=== PATIENT | female | born 1965 | race Caucasian/White ===

== ENCOUNTER 2020-11-21 15:27 | Outpatient (REF) | payer OTHER, SELFPAY ==
--- NOTE | 2020-11-21 15:33 | MM_ITS ---
EXAMINATION: MM SCREENING DIGITAL BREAST TOMOSYNTHESIS, BILATERAL CLINICAL INFORMATION: Screening. Asymptomatic. The lifetime risk of breast cancer based on the Tyrer-Cuzick Model is 10%. COMPARISON: Mammography: 06/20/2019, 06/11/2018, 05/15/2017 TECHNIQUE: Digital breast tomosynthesis is performed in both the craniocaudal and mediolateral oblique views along with computer-aided detection (CAD). Synthesized 2D images are generated from the tomosynthesis. FINDINGS: There are scattered areas of fibroglandular density (ACR BI-RADS breast composition Category b). There are no significant masses, abnormal calcifications, or other abnormalities. Parenchymal pattern is similar to prior studies. No developing density. No significant changes. MM/MM tomosynthesis screening BI IMPRESSION: There are no significant changes from prior study. ASSESSMENT: BI-RADS 1: Negative RECOMMENDATION: Routine annual mammography screening. This patient's information was entered into a reminder system with a target due date for their next mammogram.
== END 2020-11-21 15:28 | disposition home or self-care (01) ==
LOC: HO.MAMMO 15:27
PROVIDERS: PCP Internal Medicine; Visit Provider Internal Medicine
DX: Z12.31 Encounter for screening mammogram for malignant neoplasm of breast (principal)
CPT/HCPCS: 77063; 77067

== ENCOUNTER 2021-05-15 10:16 | Outpatient (REF) | payer OTHER, SELFPAY ==
[2021-05-15 10:35] LABS: MANUAL DIFF FLAG NO
[2021-05-15 10:42] LABS: Basophils Absolute Auto 0.1 X10*3/uL (0.0-0.2); Basophils Percent Auto 0.7 % (0-2); Eosinophils Absolute Auto 0.1 X10*3/uL (0.0-0.4); Eosinophils Percent Auto 1.8 % (0-4); Hematocrit 42.9 % (37-47); Imm Gran Abs Auto 0.02 X10*3/uL (0.00-0.03); Imm Gran Pct Auto 0.3 % (0.0-0.4); Lymphocytes Absolute Auto 2.1 X10*3/uL (1.2-4.9); Lymphocytes Percent Auto 31.3 % (20-40); Mean Corpuscular HGB Conc 32.6 g/dl (31.0-35.0); Mean Corpuscular Hemoglobin 29.2 pg (27.0-33.0); Mean Corpuscular Volume 89.4 fL (80-98); Mean Platelet Volume 10.1 fL (9.4-12.3); Monocytes Absolute Auto 0.7 X10*3/uL (0.1-1.2); Monocytes Percent Auto 10.6 % (2-11); Neutrophils Absolute Auto 3.8 X10*3/uL (2.0-8.3); Neutrophils Percent Auto 55.3 % (45-73); Platelet Count 461 X10*3/uL (160-400); Red Cell Distribution Width 13.2 % (11.0-16.0); White Blood Count 6.8 X10*3/uL (4.8-10.8)
[2021-05-15 10:50] LABS: Estimated Average Glucose 120 mg/dL; Hemoglobin A1c % 5.8 %
[2021-05-15 11:08] LABS: Troponin-I High Sensitivity < 3.5 ng/L (<3.5-17.0)
[2021-05-15 11:14] LABS: Anion Gap 14 (12-20); Blood Urea Nitrogen 12 mg/dL (9-16); Calcium 10.1 mg/dL (8.4-10.2); Carbon Dioxide 24 mmol/L (22-29); Chloride 105 mmol/L (96-108); Estimated Glomerular Filt Rate > 60; Glucose Random 130 mg/dL (60-115); Potassium 4.4 mmol/L (3.3-5.1); Sodium 139 mmol/L (135-145)
[2021-05-15 11:25] LABS: Thyroid Stimulating Hormone 2.39 uIU/mL (0.32-4.0)
== END 2021-05-15 10:17 | disposition home or self-care (01) ==
LOC: HO.10HDL 10:16
PROVIDERS: Visit Provider Internal Medicine
DX: R00.2 Palpitations (principal); E03.9 Hypothyroidism, unspecified
CPT/HCPCS: 36415; 80048; 83036; 83735; 84439; 84443; 84484; 85025

== ENCOUNTER → 2021-05-16 07:54 | Outpatient (REF) | payer OTHER, SELFPAY ==
--- NOTE | 2021-05-16 08:00 | CA_ITS ---
Acquisition Time: 2021-05-16 08:02:07 Total Exercise Time: 00:10:00 Test Indications: PALPITATIONS, ABN.EKG Medications: Protocol: MITCHELL Max HR: 157 BPM 95% of Pred: 164 BPM Max BP: 168/084 mmHG Max Work Load: 11.7 METS PT EXERCISED ON STD MITCHELL PROTOCOL FOR 10 MIN INTO STAGE 4. MAX HR 157-95%MAX. NO CP OR SOB. T-INV RESOLVED WITH EXERCISE. GODD EXERCISE CAPACITY. CLINICALLY AND ELEC NEG. Referred By: Ebenezer Valles Overread By: NINA VALLES MD
== END ==
LOC: HO.CARD 07:54
PROVIDERS: PCP Internal Medicine; Visit Provider Internal Medicine
DX: R00.2 Palpitations (principal)
CPT/HCPCS: 93017

== ENCOUNTER 2021-09-26 11:54 | Outpatient (REF) | payer OTHER, SELFPAY ==
[2021-09-26 13:45] LABS: MANUAL DIFF FLAG NO
[2021-09-26 13:56] LABS: Basophils Absolute Auto 0.1 X10*3/uL (0.0-0.2); Basophils Percent Auto 0.7 % (0-2); Eosinophils Absolute Auto 0.1 X10*3/uL (0.0-0.4); Eosinophils Percent Auto 1.6 % (0-4); Hematocrit 40.5 % (37.0-47.0); Hemoglobin 13.5 g/dl (12.0-16.0); Imm Gran Abs Auto 0.02 X10*3/uL (0.00-0.03); Imm Gran Pct Auto 0.3 % (0.0-0.4); Lymphocytes Absolute Auto 2.5 X10*3/uL (1.2-4.9); Lymphocytes Percent Auto 33.2 % (20-40); Mean Corpuscular HGB Conc 33.3 g/dl (31.0-35.0); Mean Corpuscular Hemoglobin 29.9 pg (27.0-33.0); Mean Corpuscular Volume 89.8 fL (80.0-98.0); Mean Platelet Volume 10.6 fL (9.4-12.3); Monocytes Absolute Auto 0.8 X10*3/uL (0.1-1.2); Monocytes Percent Auto 10.5 % (2-11); Neutrophils Percent Auto 53.7 % (45-73); Platelet Count 471 X10*3/uL (160-400); Red Blood Count 4.51 X10*6/uL (4.20-5.50); Red Cell Distribution Width 13.3 % (11.0-16.0); White Blood Count 7.4 X10*3/uL (4.8-10.8)
[2021-09-26 14:03] LABS: Appearance Urine CLEAR; Color Urine YELLOW; Glucose Urine UA NEG (NEG); Leukocyte Esterase Urine NEG (NEG); Nitrite Urine NEG (NEG); PH 5.5 (5.0-8.0); Specific Gravity - Urine <= 1.005 (1.005-1.025); Urine Blood NEG (NEG); Urine Ketones NEG (NEG); Urine Protein NEG (NEG-TRACE)
[2021-09-26 14:25] LABS: Influenza A PCR NEGATIVE (Negative); Influenza B PCR NEGATIVE (Negative); Resp Syncy Virus RNA Qual PCR NEGATIVE (Negative); SARS COV2 PCR INHOUSE NEGATIVE (Negative)
[2021-09-26 14:42] LABS: Free T4 (Free Thyroxine) 1.15 ng/dL (0.71-1.85); Thyroid Stimulating Hormone 3.38 uIU/mL (0.32-4.0)
[2021-09-26 14:43] LABS: Alanine Aminotransferase 22 U/L (0-31); Albumin Level 4.5 g/dL (3.5-5.0); Alkaline Phosphatase 50 U/L (39-117); Anion Gap 13 (12-20); Aspartate Amino Transferase 21 U/L (5-31); Bilirubin Total 0.9 mg/dL (0.0-1.0); Blood Urea Nitrogen 9 mg/dL (9-16); C Reactive Protein 0.47 mg/dL (< or = 0.50); Calcium 9.6 mg/dL (8.4-10.2); Carbon Dioxide 26 mmol/L (22-29); Chloride 105 mmol/L (96-108); Estimated Glomerular Filt Rate > 60; Glucose Random 105 mg/dL (60-115); Lipase 42 U/L (8-78); Potassium 4.4 mmol/L (3.3-5.1); Sodium 140 mmol/L (135-145); Total Protein 7.1 g/dL (6.5-8.0)
== END 2021-09-26 11:55 | disposition home or self-care (01) ==
LOC: HO.10HDL 11:54
PROVIDERS: Visit Provider Internal Medicine
DX: M54.9 Dorsalgia, unspecified (principal); R30.0 Dysuria; E03.9 Hypothyroidism, unspecified; R10.13 Epigastric pain; Z20.822 Contact with and (suspected) exposure to COVID-19
CPT/HCPCS: 0241U; 36415; 80053; 81003; 82550; 83690; 84439; 84443; 85025; 86140; 87086

== ENCOUNTER 2021-09-29 11:58 | Emergency (ER) | payer OTHER, SELFPAY ==
--- NOTE | 2021-09-29 | ECG_ITS ---
Test Reason : abd pain Blood Pressure : / mmHG Vent. Rate : 064 BPM Atrial Rate : 064 BPM P-R Int : 122 ms QRS Dur : 084 ms QT Int : 412 ms P-R-T Axes : 035 -18 007 degrees QTc Int : 425 ms Normal sinus rhythm Nonspecific ST abnormality Abnormal ECG When compared with ECG of 24-JUN-2008 10:20, No significant change was found Referred By: Generic ED Physician Electronically Signed By:NINA VALLES MD
--- NOTE | ~2021-09-29 | CT_ITS ---
EXAMINATION: CT ABDOMEN AND PELVIS WITH CONTRAST CLINICAL INFORMATION: Right-sided abdominal pain and flank pain COMPARISON: None TECHNIQUE: Multidetector volumetric images were obtained from the superior aspect of the liver through the pubic symphysis following administration 85 mL of Omnipaque 350 intravenous contrast. Sagittal and coronal reformatted images were obtained on the technologist's workstation. Oral contrast: No This CT examination was performed using dose optimization techniques as appropriate, variously including the following: *Automated exposure control *Adjustment of mA and/or kV according to patient size (this includes techniques or standardized protocols for targeted exams where dose is matched to indication/reason for exam; i.e. extremities or head) *Use of iterative reconstruction technique DLP: 503 mGy-cm FINDINGS: LUNG BASES: The visualized lung bases are unremarkable. LIVER, GALLBLADDER, AND BILIARY TREE: The liver is mildly enlarged and demonstrates diffusely decreased attenuation, compatible with hepatic steatosis.. No focal hepatic lesion or biliary ductal dilatation is present. The gallbladder is surgically absent. PANCREAS: Unremarkable. SPLEEN: Unremarkable. ADRENAL GLANDS: Unremarkable. KIDNEYS AND URETERS: The kidneys are normal in size, shape, and attenuation. No hydronephrosis, hydroureter, or calculi seen. No perinephric stranding. BLADDER: Unremarkable. GASTROINTESTINAL TRACT: The stomach and small bowel are not dilated. No evidence for bowel obstruction. There is diverticulosis of the colon without evidence for diverticulitis. Normal appendix. There is a low-attenuation 3 x 3 x 2.6 cm (CC by AP by TRV) structure adjacent to the distal sigmoid colon, which demonstrates a thin wall (series 15, image 74), that may represent a cyst. This structure appears away from the adnexa. ABDOMINAL WALL: No significant hernia is appreciated. LYMPH NODES: Normal. VASCULAR: Normal caliber of the abdominal aorta. Minimal scattered atherosclerotic calcifications. PELVIC VISCERA: Normal uterus and bilateral ovaries. OSSEOUS STRUCTURES: No acute or suspicious osseous abnormality. CT/CT abdomen pelvis w con IMPRESSION: *Nonspecific 3 cm low-attenuation cystic structure adjacent to the distal sigmoid colon in the pelvis. Differential diagnosis includes a duplication cyst or less likely developing abscess. Recommend clinical correlation. Further evaluation with ultrasound can be considered although this area may be too deep for penetration. Alternatively, an MRI can be performed. *Mildly enlarged liver with hepatic steatosis. No focal lesion.
--- NOTE | ~2021-09-29 | CT_ITS ---
EXAMINATION: CT ANGIOGRAM OF THE CHEST WITH AND WITHOUT CONTRAST (CT PULMONARY ANGIOGRAM FOR PE) CLINICAL INFORMATION: Reason for Exam Chest pain. COMPARISON: None TECHNIQUE: Prior to contrast administration, noncontrast localization images were obtained. Subsequently, multidetector volumetric imaging was performed from the thoracic inlet to below the diaphragms following the administration of 85 mL Omnipaque 350 intravenous contrast. No contrast reaction reported Sagittal, coronal, and MIP oblique sagittal reformatted images were obtained on the CT workstation, uploaded to PACS, and reviewed. This CT examination was performed using dose optimization techniques as appropriate, variously including the following: *Automated exposure control *Adjustment of mA and/or kV according to patient size (this includes techniques or standardized protocols for targeted exams where dose is matched to indication/reason for exam; i.e. extremities or head) *Use of iterative reconstruction technique Total exam dose-length product 224 mGy-cm FINDINGS: QUALITY OF STUDY/CONTRAST BOLUS: Satisfactory. PULMONARY ARTERIES: No central or definitive segmental pulmonary emboli. THORACIC AORTA: No aneurysm or dissection. LUNG: No focal consolidation, nodules or masses. PLEURA: No pleural effusion or pneumothorax. MEDIASTINUM: Normal heart size. No pericardial effusion. No hilar or mediastinal lymphadenopathy. No evidence of septal bowing or right heart strain. CHEST WALL/AXILLA: No axillary or internal mammary lymphadenopathy. OSSEOUS STRUCTURES: No acute or suspicious osseous abnormality. UPPER ABDOMEN: Unremarkable. No reflux of contrast into the hepatic veins to suggest elevated right heart pressures. CT/CT angio chest PE protocol IMPRESSION: No convincing evidence of pulmonary emboli VTE: negative
[2021-09-29 12:15] VITALS: BP 140/70; PULSE 71; RESP 18; TEMP 36.8; O2SAT 99; BMI 28.3
[2021-09-29 13:55] LABS: Appearance Urine CLEAR; Color Urine STRAW; Glucose Urine UA NEG (NEG); Leukocyte Esterase Urine NEG (NEG); Nitrite Urine NEG (NEG); Specific Gravity - Urine <= 1.005 (1.005-1.025); Urine Blood NEG (NEG); Urine Ketones NEG (NEG); Urine Protein NEG (NEG-TRACE)
[2021-09-29 14:28] VITALS: BP 132/65; PULSE 66; RESP 16; TEMP 36.9; O2SAT 99
[2021-09-29 15:09] LABS: MANUAL DIFF FLAG NO
[2021-09-29 15:10] LABS: Basophils Absolute Auto 0.1 X10*3/uL (0.0-0.2); Basophils Percent Auto 0.6 % (0-2); Eosinophils Absolute Auto 0.1 X10*3/uL (0.0-0.4); Eosinophils Percent Auto 1.1 % (0-4); Hematocrit 42.1 % (37.0-47.0); Hemoglobin 14.3 g/dl (12.0-16.0); Imm Gran Abs Auto 0.02 X10*3/uL (0.00-0.03); Imm Gran Pct Auto 0.2 % (0.0-0.4); Lymphocytes Absolute Auto 2.1 X10*3/uL (1.2-4.9); Lymphocytes Percent Auto 23.7 % (20-40); Mean Corpuscular Hemoglobin 30.5 pg (27.0-33.0); Mean Corpuscular Volume 89.8 fL (80.0-98.0); Monocytes Absolute Auto 0.7 X10*3/uL (0.1-1.2); Monocytes Percent Auto 8.3 % (2-11); Neutrophils Absolute Auto 5.9 x10*3/uL (2.0-8.3); Neutrophils Percent Auto 66.1 % (45-73); Platelet Count 417 X10*3/uL (160-400); Red Blood Count 4.69 X10*6/uL (4.20-5.50); Red Cell Distribution Width 13.1 % (11.0-16.0); White Blood Count 8.9 X10*3/uL (4.8-10.8)
[2021-09-29 15:19] LABS: Prothrombin Time 11.9 SEC (9.9-13.0)
[2021-09-29 15:22] LABS: Partial Thromboplastin Time 34.4 SEC (24.1-38.0)
[2021-09-29 15:24] LABS: Alanine Aminotransferase 26 U/L (0-31); Albumin Level 4.5 g/dL (3.5-5.0); Alkaline Phosphatase 53 U/L (39-117); Anion Gap 13 (12-20); Aspartate Amino Transferase 20 U/L (5-31); Bilirubin Direct 0.4 mg/dL (0.0-0.5); Blood Urea Nitrogen 9 mg/dL (9-16); Calcium 9.7 mg/dL (8.4-10.2); Carbon Dioxide 25 mmol/L (22-29); Chloride 105 mmol/L (96-108); Estimated Glomerular Filt Rate > 60; Glucose Random 110 mg/dL (60-115); Lipase 38 U/L (8-78); Potassium 4.4 mmol/L (3.3-5.1); Sodium 139 mmol/L (135-145); Total Protein 7.1 g/dL (6.5-8.0)
[2021-09-29 15:29] LABS: B Type Natriuretic Peptide 16 pg/mL (<100); Troponin-I High Sensitivity < 3.5 ng/L (<3.5-17.0)
[2021-09-29 16:54] LABS: Thyroid Stimulating Hormone 2.92 uIU/mL (0.32-4.0)
[2021-09-29 17:18] VITALS: BP 119/56; PULSE 66; RESP 18
[2021-09-29] MEDS: Ketorolac Tromethamine 15 MG/ML VIAL 30 MG IVPUSH (17:21)
[2021-09-29] MEDS: iohexoL 350 MG/ML 100 ML INFUS..BTL IV (17:29)
--- NOTE | 2021-09-29 18:08 | ED.GENADULT ---
HPI - General Adult General Chief complaint: General Medical Stated complaint: back & abd pain Time Seen by Provider: 09/29/21 14:41 Source: patient Mode of arrival: ambulatory Limitations: no limitations History of Present Illness HPI narrative: 56 yold female presents to the ED for mulltiple complaints. patient presents to 5 weeks of moments of atypical heart beating. patient presently denies any chest pain or shortness of breath. patient secondary complaints right abdominal/upper flank/posterior back pain intermittent for the past 2 weeks. patient states mild right pleurisy 2 weeks ago that resolved. patient denies. Anly lower extremity swelling, calf pain, or redness. patient states no recent long travel. Patient main complains is right sided abdominal pain going up to back/flanks. patient also states constipation Related Data Allergies Allergy/AdvReac Type Severity Reaction Status Date / Time No Known Allergies Allergy Verified 09/29/21 12:14 Review of Systems Review of Systems: Yes all other systems are reviewed and are negative Constitutional: Constitutional: Reports as per HPI and Reports no additional constitutional complaints Eyes: Eyes: Reports as per HPI and Reports no additional eye complaints ENT: Reports system reviewed and no additional complaints, except as documented and Reports as per HPI Cardiovascular: Cardiovascular: Reports as per HPI, Reports no additional cardiovascular complaints and Reports irregular heart rhythm Respiratory: Respiratory: Reports as per HPI, Reports no additional respiratory complaints and Reports pain on inspiration ( right side: resolved) Gastrointestinal: Gastrointestinal: Reports as per HPI, Reports no additional gastrointestinal complaints and Reports abdominal pain (right) Genitourinary: Genitourinary: Reports no additional female genitourinary complaints and Reports as per HPI Musculoskeletal: Musculoskeletal: Reports no additional musculoskeletal complaints and Reports as per HPI Integumentary/Breasts: Skin/Breast: Reports system reviewed and no additional complaints, except as docu and Reports as per HPI Neurologic: Reports system reviewed and no additional complaints, except as documented and Reports as per HPI Psychiatric: Psychiatric: Reports no additional psychiatric complaints and Reports as per HPI PMFSH Past Medical History Medical History (Updated 09/29/21 @ 18:26 by HELLEN Portillo) Uterine polyp Social History Social History Alcohol intake: current Alcohol intake frequency: a few times a month Patient Tobacco Use Status: Never used Tobacco Use of substances other than those prescribed or required for medical reasons: No Advance Directives: No Patient : No Physical Exam Vital Signs: Vital Signs: Last Vital Signs Temp 98.5 F 09/29/21 14:28 Pulse 66 09/29/21 17:18 Resp 18 09/29/21 17:18 BP 119/56 L 09/29/21 17:18 Pulse Ox 99 09/29/21 14:28 Body Mass Index 28.3 Const: General: cooperative, healthy appearing, comfortable, no acute distress, well developed, alert, awake and Physically active Orientation/consciousness: patient oriented x3 HENMT: Head: Yes normal to inspection, Yes No palpable skull fracture present, Yes normocephalic, Yes atraumatic and No abrasion Eyes: General: appearance normal, both eyes and all related structures Neck: Neck: Yes normal visual inspection, Yes full ROM, Yes no lymphadenopathy, Yes no meningeal signs, Yes trachea midline, Yes supple, Yes anterior neck swelling and No tender Chest: Chest palpation & inspection: normal inspection of the chest and normal palpation of entire chest wall Resp: Effort & Inspection: normal respiratory effort and able to speak in complete sentences Auscultation: clear to auscultation bilaterally Cardio: Jugular venous distension: no JVD Heart sounds: S1 normal heart sound present and S2 normal heart sound present GI: Inspection: Yes normal to inspection and No abdominal wall ecchymosis Palpation (GI): Soft to palpation, not firm, Tenderness to palpation present (GI) (mild) in the RLQ and in the RUQ, no guarding and not rigid : General: No CVA tenderness and Yes no CVA tenderness Back/Spine/Pelvis: Back: no CVA tenderness, No CVA tenderness and No back tenderness Skin: General skin exam: no rashes or lesions noted and elasticity normal Neuro: General: patient oriented x3, gait normal, no meningeal signs and CN's II-XI intact bilaterally Cranial nerves: Yes CN's II-XII intact bilaterally Extrem: Other: Lower extemities negative for swelling, pitting edema, or calf tenderness General: Yes normal to inspection and Yes full ROM Psych: Appearance: grossly normal, well kempt and not disheveled Course Course Course Narrative: MEdical work up Reevaluation(s) Reevaluation #1: EKG negative stemi. Troponin and BNP negatvie. Chest CTA and abdominal CT scan ordered. Toradol ordered. uA normal. Rest of labs normal. only complaint is abdominal pain so toradol was given. Signed out to night team. patent presently denies any chest pain or shortness of breath. THS normal. patient educated on HOlter monitor by PCP if all workup is normal. Patient covid test was negative this past as per patienit. Time: 18:19 Medical Decision Making MDM Narrative Medical decision making narrative: Abdominal pain. Lab Data Result diagrams: 09/29/21 15:04 09/29/21 15:04 Labs: Lab Results 09/29/21 09/29/21 09/29/21 Range/Units 13:39 15:04 15:04 WBC 8.9 (4.8-10.8) X10*3/uL RBC 4.69 (4.20-5.50) X10*6/uL Hgb 14.3 (12.0-16.0) g/dl Hct 42.1 (37.0-47.0) % MCV 89.8 (80.0-98.0) fL MCH 30.5 (27.0-33.0) pg MCHC 34.0 (31.0-35.0) g/dl RDW 13.1 (11.0-16.0) % Plt Count 417 H (160-400) X10*3/uL MPV 10.0 (9.4-12.3) fL Immature Gran % (Auto) 0.2 (0.0-0.4) % Neut % (Auto) 66.1 (45-73) % Lymph % (Auto) 23.7 (20-40) % Alexander % (Auto) 8.3 (2-11) % Eos % (Auto) 1.1 (0-4) % Baso % (Auto) 0.6 (0-2) % Lymph # (Auto) 2.1 (1.2-4.9) X10*3/uL Alexander # (Auto) 0.7 (0.1-1.2) X10*3/uL Eos # (Auto) 0.1 (0.0-0.4) X10*3/uL Baso # (Auto) 0.1 (0.0-0.2) X10*3/uL Abs Immat Gran (auto) 0.02 (0.00-0.03) X10*3/uL Absolute Neuts (auto) 5.9 (2.0-8.3) x10*3/uL Absolute Nucleated RBC 0.000 (0.0-0.012) X10*3/uL Nucleated RBC % (auto) 0.0 (0.0-0.2) /100WBC PT 11.9 (9.9-13.0) SEC INR 1.0 (0.9-1.1) APTT 34.4 (24.1-38.0) SEC Sodium (135-145) mmol/L Potassium (3.3-5.1) mmol/L Chloride (96-108) mmol/L Carbon Dioxide (22-29) mmol/L Anion Gap (12-20) BUN (9-16) mg/dL Creatinine (0.5-1.4) mg/dL Estim Creat Clear Calc Estimated GFR Random Glucose (60-115) mg/dL Calcium (8.4-10.2) mg/dL Total Bilirubin (0.0-1.0) mg/dL Direct Bilirubin (0.0-0.5) mg/dL AST (5-31) U/L ALT (0-31) U/L Alkaline Phosphatase (39-117) U/L Troponin I High Sens (<3.5-17.0) ng/L B-Natriuretic Peptide (<100) pg/mL Total Protein (6.5-8.0) g/dL Albumin (3.5-5.0) g/dL Lipase (8-78) U/L TSH (0.32-4.0) uIU/mL Urine Color STRAW Urine Appearance CLEAR Urine pH 6.0 (5.0-8.0) Ur Specific Adams <= 1.005 (1.005-1.025) Urine Protein NEG (NEG-TRACE) MG/DL Urine Glucose (UA) NEG (NEG) MG/DL Urine Ketones NEG (NEG) MG/DL Urine Blood NEG (NEG) Urine Nitrite NEG (NEG) Ur Leukocyte Esterase NEG (NEG) 09/29/21 09/29/21 Range/Units 15:04 15:04 WBC (4.8-10.8) X10*3/uL RBC (4.20-5.50) X10*6/uL Hgb (12.0-16.0) g/dl Hct (37.0-47.0) % MCV (80.0-98.0) fL MCH (27.0-33.0) pg MCHC (31.0-35.0) g/dl RDW (11.0-16.0) % Plt Count (160-400) X10*3/uL MPV (9.4-12.3) fL Immature Gran % (Auto) (0.0-0.4) % Neut % (Auto) (45-73) % Lymph % (Auto) (20-40) % Alexander % (Auto) (2-11) % Eos % (Auto) (0-4) % Baso % (Auto) (0-2) % Lymph # (Auto) (1.2-4.9) X10*3/uL Alexander # (Auto) (0.1-1.2) X10*3/uL Eos # (Auto) (0.0-0.4) X10*3/uL Baso # (Auto) (0.0-0.2) X10*3/uL Abs Immat Gran (auto) (0.00-0.03) X10*3/uL Absolute Neuts (auto) (2.0-8.3) x10*3/uL Absolute Nucleated RBC (0.0-0.012) X10*3/uL Nucleated RBC % (auto) (0.0-0.2) /100WBC PT (9.9-13.0) SEC INR (0.9-1.1) APTT (24.1-38.0) SEC Sodium 139 (135-145) mmol/L Potassium 4.4 (3.3-5.1) mmol/L Chloride 105 (96-108) mmol/L Carbon Dioxide 25 (22-29) mmol/L Anion Gap 13 (12-20) BUN 9 (9-16) mg/dL Creatinine 0.75 (0.5-1.4) mg/dL Estim Creat Clear Calc 76.0 Estimated GFR > 60 Random Glucose 110 (60-115) mg/dL Calcium 9.7 (8.4-10.2) mg/dL Total Bilirubin 1.0 (0.0-1.0) mg/dL Direct Bilirubin 0.4 (0.0-0.5) mg/dL AST 20 (5-31) U/L ALT 26 (0-31) U/L Alkaline Phosphatase 53 (39-117) U/L Troponin I High Sens < 3.5 (<3.5-17.0) ng/L B-Natriuretic Peptide 16 (<100) pg/mL Total Protein 7.1 (6.5-8.0) g/dL Albumin 4.5 (3.5-5.0) g/dL Lipase 38 (8-78) U/L TSH 2.92 (0.32-4.0) uIU/mL Urine Color Urine Appearance Urine pH (5.0-8.0) Ur Specific Adams (1.005-1.025) Urine Protein (NEG-TRACE) MG/DL Urine Glucose (UA) (NEG) MG/DL Urine Ketones (NEG) MG/DL Urine Blood (NEG) Urine Nitrite (NEG) Ur Leukocyte Esterase (NEG) ECG Data Interpretation: Normal Sinus rhythm. Vent rate 64. HR 122. QRS 84, aQTC 425. negative semi Discharge Plan Discharge Clinical Impression: Abdominal pain, Heart palpitations
[2021-09-29 19:21] VITALS: BP 111/63; PULSE 67; RESP 13
[2021-09-29 21:34] VITALS: BP 138/59; PULSE 59; RESP 14; TEMP 37.4; O2SAT 96
== END 2021-09-29 21:39 | disposition home or self-care (01) ==
PROVIDERS: Physician Assistant; Emergency Provider Emergency Medicine Emergency Medical Services; PCP Internal Medicine
DX: M54.50 Low back pain, unspecified (principal); R06.02 Shortness of breath; R00.2 Palpitations; R10.9 Unspecified abdominal pain; Z79.899 Other long term (current) drug therapy
CPT/HCPCS: 36415; 71275; 74177; 80053; 81003; 82248; 83690; 83880; 84443; 84484; 85025; 85610; 85730; 93005; 96374; 99284; 99285; J1885; Q9967

== ENCOUNTER → 2021-10-30 14:30 | Outpatient (BNVA) | payer OTHER, SELFPAY | PROVIDERS: PCP Internal Medicine; Referring Provider Internal Medicine; Visit Provider Surgery ==

== ENCOUNTER 2021-12-17 15:07 | Outpatient (REF) | payer OTHER, SELFPAY ==
--- NOTE | ~2021-12-17 | MM_ITS ---
EXAMINATION: MM SCREENING DIGITAL BREAST TOMOSYNTHESIS, BILATERAL CLINICAL INFORMATION: Screening. Asymptomatic. The lifetime risk of breast cancer based on the Tyrer-Cuzick Model is 9%. COMPARISON: Mammography: 11/21/2020, 06/20/2019, 06/11/2018 TECHNIQUE: Digital breast tomosynthesis is performed in both the craniocaudal and mediolateral oblique views along with computer-aided detection (CAD). Synthesized 2D images are generated from the tomosynthesis. FINDINGS: There are scattered areas of fibroglandular density (ACR BI-RADS breast composition Category b). There are no significant masses, abnormal calcifications, or other abnormalities. Parenchymal pattern is similar to prior studies. There is no developing density or architectural abnormality. The axilla and skin contours are unremarkable. No significant changes. MM/MM tomosynthesis screening BI IMPRESSION: No mammographic evidence of malignancy. ASSESSMENT: BI-RADS 1: Negative RECOMMENDATION: Routine annual mammography screening. This patient's information was entered into a reminder system with a target due date for their next mammogram.
== END 2021-12-17 15:08 | disposition home or self-care (01) ==
LOC: HO.MAMMO 15:07
PROVIDERS: PCP Internal Medicine; Visit Provider Internal Medicine
DX: Z12.31 Encounter for screening mammogram for malignant neoplasm of breast (principal)
CPT/HCPCS: 77063; 77067

== ENCOUNTER 2022-09-24 16:14 | Outpatient (REF) | payer OTHER, SELFPAY ==
[2022-09-24 17:21] LABS: Influenza A PCR NEGATIVE (Negative); Influenza B PCR NEGATIVE (Negative); Resp Syncy Virus RNA Qual PCR NEGATIVE (Negative); SARS COV2 PCR INHOUSE NEGATIVE (Negative)
== END 2022-09-24 16:15 | disposition home or self-care (01) ==
LOC: HO.LNP 16:14
PROVIDERS: Visit Provider Internal Medicine
DX: R50.9 Fever, unspecified (principal); R05.9 Cough, unspecified; Z20.822 Contact with and (suspected) exposure to COVID-19
CPT/HCPCS: 0241U

== ENCOUNTER 2022-10-13 07:43 | Outpatient (REF) | payer OTHER, SELFPAY ==
[2022-10-13 10:47] LABS: MANUAL DIFF FLAG NO
[2022-10-13 10:51] LABS: Basophils Absolute Auto 0.1 X10*3/uL (0.0-0.2); Basophils Percent Auto 0.9 % (0-2); Eosinophils Absolute Auto 0.2 X10*3/uL (0.0-0.4); Eosinophils Percent Auto 2.8 % (0-4); Hematocrit 41.5 % (37.0-47.0); Hemoglobin 13.7 g/dl (12.0-16.0); Imm Gran Abs Auto 0.02 X10*3/uL (0.00-0.03); Imm Gran Pct Auto 0.3 % (0.0-0.4); Lymphocytes Absolute Auto 2.1 X10*3/uL (1.2-4.9); Lymphocytes Percent Auto 33.6 % (20-40); Mean Corpuscular Hemoglobin 29.7 pg (27.0-33.0); Mean Corpuscular Volume 89.8 fL (80.0-98.0); Mean Platelet Volume 10.7 fL (9.4-12.3); Monocytes Absolute Auto 0.7 X10*3/uL (0.1-1.2); Monocytes Percent Auto 10.9 % (2-11); Neutrophils Absolute Auto 3.3 x10*3/uL (2.0-8.3); Neutrophils Percent Auto 51.5 % (45-73); Platelet Count 435 X10*3/uL (160-400); Red Blood Count 4.62 X10*6/uL (4.20-5.50); Red Cell Distribution Width 13.2 % (11.0-16.0); White Blood Count 6.3 X10*3/uL (4.8-10.8)
[2022-10-13 11:40] LABS: Alanine Aminotransferase 31 U/L (0-31); Albumin Level 4.2 g/dL (3.5-5.0); Alkaline Phosphatase 59 U/L (39-117); Anion Gap 11 (12-20); Aspartate Amino Transferase 26 U/L (5-31); Bilirubin Total 1.7 mg/dL (0.0-1.0); Blood Urea Nitrogen 10 mg/dL (9-16); Calcium 9.7 mg/dL (8.4-10.2); Carbon Dioxide 28 mmol/L (22-29); Chloride 104 mmol/L (96-108); Cholesterol 155 mg/dL; Estimated Glomerular Filt Rate > 60; Free T4 (Free Thyroxine) 1.27 ng/dL (0.71-1.85); Glucose Fasting 129 mg/dL (60-99); HDL Cholesterol 48 mg/dL; LDL Cholesterol Calculated 95 mg/dl; Potassium 4.5 mmol/L (3.3-5.1); Sodium 138 mmol/L (135-145); Thyroid Stimulating Hormone 1.43 uIU/mL (0.32-4.0); Total Protein 6.9 g/dL (6.5-8.0); Triglycerides 64 mg/dL
== END 2022-10-13 07:44 | disposition home or self-care (01) ==
LOC: HO.10HDL 07:43
PROVIDERS: Visit Provider Internal Medicine
DX: Z00.00 Encounter for general adult medical examination without abnormal findings (principal); E03.9 Hypothyroidism, unspecified
CPT/HCPCS: 36415; 80053; 80061; 84439; 84443; 85025

== ENCOUNTER 2022-10-21 07:46 | Outpatient (REF) | payer OTHER, SELFPAY ==
[2022-10-21 11:14] LABS: Estimated Average Glucose 123 mg/dL; Hemoglobin A1c % 5.9 %
[2022-10-21 11:29] LABS: Anion Gap 12 (12-20); Blood Urea Nitrogen 13 mg/dL (9-16); Carbon Dioxide 27 mmol/L (22-29); Chloride 103 mmol/L (96-108); Estimated Glomerular Filt Rate > 60; Glucose Random 135 mg/dL (60-115); Potassium 4.4 mmol/L (3.3-5.1); Sodium 138 mmol/L (135-145)
== END 2022-10-21 07:47 | disposition home or self-care (01) ==
LOC: HO.10HDL 07:46
PROVIDERS: Visit Provider Internal Medicine
DX: R73.03 Prediabetes (principal)
CPT/HCPCS: 36415; 80048; 83036

== ENCOUNTER 2022-12-18 15:13 | Outpatient (REF) | payer OTHER, SELFPAY ==
--- NOTE | ~2022-12-18 | MM_ITS ---
EXAMINATION: MM SCREENING DIGITAL BREAST TOMOSYNTHESIS, BILATERAL CLINICAL INFORMATION: Screening. Asymptomatic. [place] 2 positive The lifetime risk of breast cancer based on the Tyrer-Cuzick Model is 37.4%. Additional annual screening with breast MRI may be of benefit in women with a score of 20% or greater. COMPARISON: Mammography: December 17, 2021 and studies dating back to November 16, 2013 TECHNIQUE: Digital breast tomosynthesis is performed in both the craniocaudal and mediolateral oblique views along with computer-aided detection (CAD). Synthesized 2D images are generated from the tomosynthesis. FINDINGS: There are scattered areas of fibroglandular density (ACR BI-RADS breast composition Category b). There are no significant masses, abnormal calcifications, or other abnormalities. MM/MM tomosynthesis screening BI IMPRESSION: No significant changes from prior exam. ASSESSMENT: BI-RADS 1: Negative RECOMMENDATION: Routine annual mammography screening. This patient's information was entered into a reminder system with a target due date for their next mammogram.
== END 2022-12-18 15:14 | disposition home or self-care (01) ==
LOC: HO.MAMMO 15:13
PROVIDERS: Visit Provider Internal Medicine
DX: Z12.31 Encounter for screening mammogram for malignant neoplasm of breast (principal)
CPT/HCPCS: 77063; 77067

== ENCOUNTER 2023-04-12 08:58 | Emergency (ER) | payer OTHER, SELFPAY ==
--- NOTE | ~2023-04-12 | CT_ITS ---
EXAMINATION: CT ABDOMEN AND PELVIS WITH CONTRAST CLINICAL INFORMATION: Lower abdominal tenderness. COMPARISON: 09/29/2021. TECHNIQUE: Multidetector volumetric images were obtained from the superior aspect of the liver through the pubic symphysis following administration 85 mL of Omnipaque 350 intravenous contrast. Sagittal and coronal reformatted images were obtained on the technologist's workstation. Oral contrast: No This CT examination was performed using dose optimization techniques as appropriate, variously including the following: *Automated exposure control *Adjustment of mA and/or kV according to patient size (this includes techniques or standardized protocols for targeted exams where dose is matched to indication/reason for exam; i.e. extremities or head) *Use of iterative reconstruction technique DLP: 484 mGy-cm FINDINGS: LUNG BASES: Normal. No pulmonary consolidation or pleural effusion. LIVER: Diffuse hepatic steatosis. GALLBLADDER AND BILIARY TREE: Gallbladder is surgically absent. Common bile duct is chronically dilated, 1 cm diameter, unchanged compared to 09/29/2021. No radiopaque stones within the mildly dilated duct. PANCREAS: Normal. No edema, pancreatic ductal dilatation or mass. SPLEEN: Normal. ADRENAL GLANDS: Normal. KIDNEYS AND URETERS: Kidneys are normal in size and enhance symmetrically. No renal stones, hydronephrosis or perinephric edema. The ureters are unremarkable. BLADDER: Normal. No calculi or wall thickening. BOWEL AND PERITONEUM: Stomach is unremarkable. No dilated loops of bowel. The appendix is normal. Multiple diverticula of the descending and sigmoid colon. There is focal mesenteric sided wall thickening of the sigmoid and adjacent fat stranding, and this appears to represent acute diverticulitis. No abscess or pneumoperitoneum. Trace free fluid is present in the pelvis. ABDOMINAL WALL: Chronic diastases of rectus abdominis muscles. VASCULATURE: Abdominal aorta is normal in size and its branches are widely patent. Inferior vena cava is normal. Mildly dilated left gonadal vein and prominent left parauterine veins. These findings are suggestive of chronic venous valve incompetence with venous reflux. LYMPH NODES: No pathologic sized lymph nodes in the abdomen or pelvis. No inguinal lymphadenopathy. PELVIC VISCERA: No uterine or adnexal mass. MUSCULOSKELETAL: Unremarkable. CT/CT abdomen pelvis w IV con IMPRESSION: * Acute inflammation/diverticulitis of the sigmoid colon. No bowel perforation or abscess. * Diffuse hepatic steatosis. * Common bile duct is chronically mildly dilated, status post cholecystectomy. * The left gonadal vein and parauterine veins are chronically dilated.
[2023-04-12 08:59] VITALS: BP 142/71; PULSE 72; RESP 18; TEMP 37.1; O2SAT 98; BMI 26.6
--- NOTE | 2023-04-12 09:08 | ED.GENADULT ---
HPI - General Adult General Chief complaint: Abdominal Pain Stated complaint: Abd pain Time Seen by Provider: 04/12/23 09:07 Source: patient Mode of arrival: ambulatory Limitations: no limitations History of Present Illness HPI narrative: Patient is a 57-year old female with history of hypothyroid, uterine polyps, and a mesenteric cyst presenting with lower abdominal pain and low-grade fevers since . She describes the pain as behind my umbilical area, and worse after eating. She reports temp of 100.5 on , and low-grade temps through the weekend. She reports mild nausea and decreased appetite as eating increases her pain. She denies any vomiting. Denies diarrhea or constipation. Denies any hematochezia or melena. Denies any abnormal vaginal discharge. Does report some radiation to left flank. She reports history of surgery related to her uterine polyps but states the polyps were unable to be removed. Denies any chest pain or shortness of breath. Denies any dysuria, hematuria, or other urinary symptoms. Did use ibuprofen with mild relief of discomfort, has not taken any medications this morning. MD complaint: abdominal pain Onset (ago): day(s) Location: abdomen Radiation: flank Severity: moderate Severity scale (1-10): 6 Pain Consistency: colicky Exacerbating factors: eating Associated symptoms: nausea/vomiting (reports mild nausea, denies vomiting) Treatments prior to arrival: NSAID Related Data Home Medications Medication Instructions Recorded Confirmed levothyroxine 100 mcg tablet 100 mcg PO DAILY 10/30/21 10/30/21 Previous Rx's Medication Instructions Recorded amoxicillin 875 mg-potassium 1 tab PO TID #21 tabs 04/12/23 clavulanate 125 mg tablet ondansetron 4 mg disintegrating 4 mg PO Q8H PRN nausea and 04/12/23 tablet vomiting #14 tabs Allergies Allergy/AdvReac Type Severity Reaction Status Date / Time No Known Allergies Allergy Verified 10/14/22 08:40 Review of Systems Review of Systems: As per HPI. Yes all other systems are reviewed and are negative Constitutional: Constitutional: Reports as per HPI [facility] Past Medical History Medical History Abnormal CT scan, gastrointestinal tract Uterine polyp Social History Social History (System 10/14/22 @ 08:40 by Kayli Gawlik) Alcohol intake: current Alcohol intake frequency: a few times a month Patient Tobacco Use Status: Never used Tobacco Advance Directives: No Advance Directives Information Provided: Yes Physical Exam ED Vital Signs: Vital Signs - 24 hr 04/12/23 08:59 04/12/23 09:15 Temperature 98.7 F 99.0 F Pulse Rate 72 71 Respiratory Rate 18 18 Blood Pressure 142/71 H 133/64 Pulse Oximetry 98 99 Oxygen Delivery Method Room Air Room Air BMI result Body Mass Index 26.6 Vital signs have been reviewed and appear to be correct. Blood pressure slightly elevated. Heart rate normal. Respiratory rate normal. Temperature normal. Oxygen saturation normal. Const General: cooperative, healthy appearing and no acute distress Orientation/consciousness: oriented to person, oriented to place, oriented to time and patient oriented x3 Limitations: no limitations HENMT Head: Yes normocephalic and Yes atraumatic Ears: external ears normal General nose exam: Normal external nose present Face and sinus: Yes face symmetric Mouth: oropharynx normal and moist mucous membranes Throat: Yes uvula midline Eyes Pupils: Equal, round and reactive pupils present Neck Neck: Yes normal visual inspection and Yes supple Resp Effort & Inspection: normal respiratory effort and able to speak in complete sentences Auscultation: clear to auscultation bilaterally Cardio Rate: regular rate Rhythm: regular rhythm Heart sounds: S1 normal heart sound present and S2 normal heart sound present GI Inspection: Yes normal to inspection and Yes scar Palpation (GI): Soft to palpation, Tenderness to palpation present (GI) in the LLQ and in the RLQ, no guarding, no masses and No Rebound tenderness present Auscultation: normoactive bowel sounds General: Yes no CVA tenderness Back/Spine/Pelvis Back: no CVA tenderness Skin General skin exam: elasticity normal and turgor normal Neuro General: oriented to person, oriented to place, oriented to time, patient oriented x3, moves all extremities, no focal motor deficits and CN's II-XI intact bilaterally Cranial nerves: Yes Equal, round and reactive pupils present Cognition (Neuro): normal cognition Extrem General: Yes full ROM, Yes no pedal edema and Yes no calf tenderness Psych Mental Status: mental status grossly normal Affect: normal affect Thought process: Normal thought process present Course Course Course Narrative: 10:51 Notified by lab of positive urine HCG. Ordered HCG quant which was 8. Patient stating she has not menstruated in [address] Solis who agrees patient can have CT abd/pelvis. Labs otherwise unremarkable, urine negative for infection. 12:58 FINDINGS: LUNG BASES: Normal. No pulmonary consolidation or pleural effusion.? LIVER: Diffuse hepatic steatosis. GALLBLADDER AND BILIARY TREE: Gallbladder is surgically absent. Common bile duct is chronically dilated, 1 cm diameter, unchanged compared to 09/29/2021. No radiopaque stones within the mildly dilated duct. PANCREAS: Normal. No edema, pancreatic ductal dilatation or mass.? SPLEEN: Normal.? ADRENAL GLANDS: Normal.? KIDNEYS AND URETERS: Kidneys are normal in size and enhance symmetrically. No renal stones, hydronephrosis or perinephric edema. The ureters are unremarkable. BLADDER:? Normal. No calculi or wall thickening. BOWEL AND PERITONEUM: Stomach is unremarkable. No dilated loops of bowel. The appendix is normal. Multiple diverticula of the descending and sigmoid colon. There is focal mesenteric sided wall thickening of the sigmoid and adjacent fat stranding, and this appears to represent acute diverticulitis. No abscess or pneumoperitoneum. Trace free fluid is present in the pelvis. ABDOMINAL WALL: Chronic diastases of rectus abdominis muscles.? VASCULATURE: Abdominal aorta is normal in size and its branches are widely patent. Inferior vena cava is normal. Mildly dilated left gonadal vein and prominent left parauterine veins. These findings are suggestive of chronic venous valve incompetence with venous reflux. LYMPH NODES: No pathologic sized lymph nodes in the abdomen or pelvis. No inguinal lymphadenopathy. PELVIC VISCERA: No uterine or adnexal mass. MUSCULOSKELETAL: Unremarkable.? CT/CT abdomen pelvis w IV con IMPRESSION: *? Acute inflammation/diverticulitis of the sigmoid colon. No bowel perforation or abscess. *? Diffuse hepatic steatosis. *? Common bile duct is chronically mildly dilated, status post cholecystectomy. *? The left gonadal vein and parauterine veins are chronically dilated. Patient is able to tolerate PO. Feel patient is stable for discharge home on oral antibiotics and can follow up with PCP outpatient. Prescribed Augmentin TID x 7 days as well as ondansetron as needed for nausea. All results discussed with patient and all questions answered. Patient agreeable to plan, return precautions discussed at bedside. Instructed patient to follow up with her DEVELOPMENT TECHNICAL LEAD regarding elevated HCG levels. Medications Administered Discontinued Medications Generic Name Dose Route Start Last Admin Trade Name Freq PRN Reason Stop Dose Admin Iohexol 100 ml 04/12/23 11:29 04/12/23 11:30 Iohexol 350 Mg/Ml 100 Ml Infus..Btl IV 04/12/23 11:30 85 ml ONCE ONE Administration Ketorolac Tromethamine 15 mg 04/12/23 09:21 04/12/23 12:34 Ketorolac Tromethamine 15 Mg/Ml Vial IVPUSH 04/12/23 09:22 15 mg ONCE ONE Administration Medical Decision Making Medical Decision Making [facility] Narrative: Patient is a 57-year old female with history of hypothyroid, uterine polyps, and a mesenteric cyst presenting with lower abdominal pain and low-grade fevers since . On exam patient is awake, A+Ox3, VS WNL, afebrile, nontoxic appearing, LS CTA, abdomen is soft, bilateral lower quadrant tenderness, no rebound tenderness, no CVA tenderness. Differential includes diverticulitis, appendicitis, bowel obstruction, UTI/pyelonephritis, renal colic, constipation, uterine fibroid. Unlikely AAA rupture, mesenteric ischemia, ectopic. Plan: labs, UA, urine hcg, CT abdomen/pelvis, pain management Please refer to course for remaining clinical decision making. Differential Diagnosis Differential Diagnoses: The differential diagnosis associated with the presentation includes As above. Lab Data 04/12/23 09:26 04/12/23 09:26 Labs: Lab Results 04/12/23 04/12/23 04/12/23 Range/Units 09:26 09:26 09:36 WBC 10.7 (4.8-10.8) X10*3/uL RBC 4.42 (4.20-5.50) X10*6/uL Hgb 13.3 (12.0-16.0) g/dl Hct 39.3 (37.0-47.0) % MCV 88.9 (80.0-98.0) fL MCH 30.1 (27.0-33.0) pg MCHC 33.8 (31.0-35.0) g/dl RDW 13.3 (11.0-16.0) % Plt Count 405 H (160-400) X10*3/uL MPV 9.9 (9.4-12.3) fL Immature Gran % (Auto) 0.4 (0.0-0.4) % Neut % (Auto) 65.7 (45-73) % Lymph % (Auto) 21.8 (20-40) % Screven % (Auto) 10.0 (2-11) % Eos % (Auto) 1.6 (0-4) % Baso % (Auto) 0.5 (0-2) % Lymph # (Auto) 2.3 (1.2-4.9) X10*3/uL Screven # (Auto) 1.1 (0.1-1.2) X10*3/uL Eos # (Auto) 0.2 (0.0-0.4) X10*3/uL Baso # (Auto) 0.1 (0.0-0.2) X10*3/uL Abs Immat Gran (auto) 0.04 H (0.00-0.03) X10*3/uL Absolute Neuts (auto) 7.0 (2.0-8.3) x10*3/uL Absolute Nucleated RBC 0.000 (0.0-0.012) X10*3/uL Nucleated RBC % (auto) 0.0 (0.0-0.2) /100WBC Sodium 140 (135-145) mmol/L Potassium 4.3 (3.3-5.1) mmol/L Chloride 105 (96-108) mmol/L Carbon Dioxide 27 (22-29) mmol/L Anion Gap 12 (12-20) BUN 8 L (9-16) mg/dL Creatinine 0.78 (0.5-1.4) mg/dL Estim Creat Clear Calc 72.8 Estimated GFR > 60 Random Glucose 133 H (60-115) mg/dL Calcium 9.8 (8.4-10.2) mg/dL Total Bilirubin 1.7 H (0.0-1.0) mg/dL AST 16 (5-31) U/L ALT 18 (0-31) U/L Alkaline Phosphatase 45 (39-117) U/L Total Protein 6.9 (6.5-8.0) g/dL Albumin 4.2 (3.5-5.0) g/dL Lipase 30 (8-78) U/L Beta HCG, Quant 8 mIU/mL Urine Color Yellow Urine Appearance Clear Urine pH 7.0 (5.0-9.0) Ur Specific Kevin 1.015 (1.005-1.025) Urine Protein Negative (Neg-Trace) mg/dL Urine Glucose (UA) Negative (Negative) mg/dL Urine Ketones Negative (Negative) mg/dL Urine Blood Negative (Negative) Urine Nitrite Negative (Negative) Ur Leukocyte Esterase Negative (Negative) Urine Test (NEGATIVE) 04/12/23 Range/Units 09:36 WBC (4.8-10.8) X10*3/uL RBC (4.20-5.50) X10*6/uL Hgb (12.0-16.0) g/dl Hct (37.0-47.0) % MCV (80.0-98.0) fL MCH (27.0-33.0) pg MCHC (31.0-35.0) g/dl RDW (11.0-16.0) % Plt Count (160-400) X10*3/uL MPV (9.4-12.3) fL Immature Gran % (Auto) (0.0-0.4) % Neut % (Auto) (45-73) % Lymph % (Auto) (20-40) % Screven % (Auto) (2-11) % Eos % (Auto) (0-4) % Baso % (Auto) (0-2) % Lymph # (Auto) (1.2-4.9) X10*3/uL Screven # (Auto) (0.1-1.2) X10*3/uL Eos # (Auto) (0.0-0.4) X10*3/uL Baso # (Auto) (0.0-0.2) X10*3/uL Abs Immat Gran (auto) (0.00-0.03) X10*3/uL Absolute Neuts (auto) (2.0-8.3) x10*3/uL Absolute Nucleated RBC (0.0-0.012) X10*3/uL Nucleated RBC % (auto) (0.0-0.2) /100WBC Sodium (135-145) mmol/L Potassium (3.3-5.1) mmol/L Chloride (96-108) mmol/L Carbon Dioxide (22-29) mmol/L Anion Gap (12-20) BUN (9-16) mg/dL Creatinine (0.5-1.4) mg/dL Estim Creat Clear Calc Estimated GFR Random Glucose (60-115) mg/dL Calcium (8.4-10.2) mg/dL Total Bilirubin (0.0-1.0) mg/dL AST (5-31) U/L ALT (0-31) U/L Alkaline Phosphatase (39-117) U/L Total Protein (6.5-8.0) g/dL Albumin (3.5-5.0) g/dL Lipase (8-78) U/L Beta HCG, Quant mIU/mL Urine Color Urine Appearance Urine pH (5.0-9.0) Ur Specific Kevin (1.005-1.025) Urine Protein (Neg-Trace) mg/dL Urine Glucose (UA) (Negative) mg/dL Urine Ketones (Negative) mg/dL Urine Blood (Negative) Urine Nitrite (Negative) Ur Leukocyte Esterase (Negative) Urine Test WEAKLY POSITIVE H (NEGATIVE) Discharge Plan Discharge Clinical Impression: Diverticulitis of sigmoid colon Patient Disposition: Home, Self-Care Instructions: Diverticulitis (ED), Diverticulitis Diet (ED) Additional Instructions: Follow up with your DEVELOPMENT TECHNICAL LEAD this week regarding your elevated HCG levels. Follow up with your PCP this week. You are being prescribed an antibiotic called Augmentin for your diverticulitis. Please take the full course of medication as prescribed to completion. Return to the emergency department if you develop worsening pain, persistent vomiting, fever 100.4F or greater not controlled with Tylenol/ibuprofen, or any other concerning symptoms. Prescriptions: New amoxicillin-pot clavulanate 875-125 mg tablet 1 tab PO TID Qty: 21 0RF ondansetron 4 mg tablet,disintegrating 4 mg PO Q8H PRN (Reason: nausea and vomiting) Qty: 14 0RF No Action levothyroxine 100 mcg tablet 100 mcg PO DAILY Referrals: [facility] [Provider Group]
[2023-04-12 09:15] VITALS: BP 133/64; PULSE 71; RESP 18; TEMP 37.2; O2SAT 99
[2023-04-12 09:31] LABS: MANUAL DIFF FLAG NO
--- NOTE | 2023-04-12 09:31 | PC.NURSE ---
Provider ordered nausea medications and pain medications, however at this time pt does not want them, provider aware, there if she needs them.
[2023-04-12 09:33] LABS: Basophils Absolute Auto 0.1 X10*3/uL (0.0-0.2); Basophils Percent Auto 0.5 % (0-2); Eosinophils Absolute Auto 0.2 X10*3/uL (0.0-0.4); Eosinophils Percent Auto 1.6 % (0-4); Hematocrit 39.3 % (37.0-47.0); Hemoglobin 13.3 g/dl (12.0-16.0); Imm Gran Abs Auto 0.04 X10*3/uL (0.00-0.03); Imm Gran Pct Auto 0.4 % (0.0-0.4); Lymphocytes Absolute Auto 2.3 X10*3/uL (1.2-4.9); Lymphocytes Percent Auto 21.8 % (20-40); Mean Corpuscular HGB Conc 33.8 g/dl (31.0-35.0); Mean Corpuscular Hemoglobin 30.1 pg (27.0-33.0); Mean Corpuscular Volume 88.9 fL (80.0-98.0); Mean Platelet Volume 9.9 fL (9.4-12.3); Monocytes Absolute Auto 1.1 X10*3/uL (0.1-1.2); Neutrophils Percent Auto 65.7 % (45-73); Platelet Count 405 X10*3/uL (160-400); Red Blood Count 4.42 X10*6/uL (4.20-5.50); Red Cell Distribution Width 13.3 % (11.0-16.0); White Blood Count 10.7 X10*3/uL (4.8-10.8)
[2023-04-12 09:46] LABS: Appearance Urine Clear; Color Urine Yellow; Glucose Urine UA Negative (Negative); Leukocyte Esterase Urine Negative (Negative); Nitrite Urine Negative (Negative); Specific Gravity - Urine 1.015 (1.005-1.025); Urine Blood Negative (Negative); Urine Ketones Negative (Negative); Urine Protein Negative (Neg-Trace)
[2023-04-12 09:55] LABS: Alanine Aminotransferase 18 U/L (0-31); Albumin Level 4.2 g/dL (3.5-5.0); Alkaline Phosphatase 45 U/L (39-117); Anion Gap 12 (12-20); Aspartate Amino Transferase 16 U/L (5-31); Bilirubin Total 1.7 mg/dL (0.0-1.0); Blood Urea Nitrogen 8 mg/dL (9-16); Calcium 9.8 mg/dL (8.4-10.2); Carbon Dioxide 27 mmol/L (22-29); Chloride 105 mmol/L (96-108); Creatinine Clr Calc Pharmacy 72.8; Estimated Glomerular Filt Rate > 60; Glucose Random 133 mg/dL (60-115); Lipase 30 U/L (8-78); Potassium 4.3 mmol/L (3.3-5.1); Sodium 140 mmol/L (135-145); Total Protein 6.9 g/dL (6.5-8.0)
[2023-04-12 10:05] LABS: UPreg QC Valid YES; Urine Pregnancy WEAKLY POSITIVE (NEGATIVE)
[2023-04-12 10:22] LABS: HCG Quantitative 8 mIU/mL
[2023-04-12] MEDS: iohexoL 350 MG/ML 100 ML INFUS..BTL IV (11:30)
--- NOTE | 2023-04-12 11:48 | PC.NURSE ---
Pt reassessed, pt still stating she is okay to not have any pain medication/nausea medication. Pt educated to let staff know if she needs it
[2023-04-12] MEDS: Ketorolac Tromethamine 15 MG/ML VIAL IVPUSH (12:34)
== END 2023-04-12 13:47 | disposition home or self-care (01) ==
PROVIDERS: Registered Nurse Emergency; Emergency Provider Internal Medicine; PCP Internal Medicine
DX: K57.32 Diverticulitis of large intestine without perforation or abscess without bleeding (principal); R10.30 Lower abdominal pain, unspecified; R11.0 Nausea; Z79.899 Other long term (current) drug therapy
CPT/HCPCS: 36415; 74177; 80053; 81003; 81025; 83690; 84702; 85025; 96374; 99284; 99285; J1885; Q9967

== ENCOUNTER 2023-08-19 07:29 | Outpatient (REF) | payer OTHER, SELFPAY ==
[2023-08-19 10:46] LABS: MANUAL DIFF FLAG NO
[2023-08-19 10:49] LABS: Basophils Percent Auto 0.6 % (0-2); Eosinophils Absolute Auto 0.4 X10*3/uL (0.0-0.4); Eosinophils Percent Auto 4.9 % (0-4); Hematocrit 40.5 % (37.0-47.0); Hemoglobin 13.4 g/dl (12.0-16.0); Imm Gran Abs Auto 0.03 X10*3/uL (0.00-0.03); Imm Gran Pct Auto 0.4 % (0.0-0.4); Lymphocytes Absolute Auto 1.4 X10*3/uL (1.2-4.9); Lymphocytes Percent Auto 19.9 % (20-40); Mean Corpuscular HGB Conc 33.1 g/dl (31.0-35.0); Mean Corpuscular Hemoglobin 29.8 pg (27.0-33.0); Mean Corpuscular Volume 90.2 fL (80.0-98.0); Mean Platelet Volume 10.3 fL (9.4-12.3); Monocytes Absolute Auto 0.8 X10*3/uL (0.1-1.2); Monocytes Percent Auto 10.9 % (2-11); Neutrophils Absolute Auto 4.5 x10*3/uL (2.0-8.3); Neutrophils Percent Auto 63.3 % (45-73); Platelet Count 443 X10*3/uL (160-400); Red Blood Count 4.49 X10*6/uL (4.20-5.50); Red Cell Distribution Width 13.2 % (11.0-16.0); White Blood Count 7.1 X10*3/uL (4.8-10.8)
[2023-08-19 11:03] LABS: Estimated Average Glucose 120 mg/dL; Hemoglobin A1c % 5.8 % (<6.0)
[2023-08-19 11:11] LABS: Anion Gap 12 (12-20); Blood Urea Nitrogen 11 mg/dL (9-16); C Reactive Protein 0.82 mg/dL (< or = 0.50); Calcium 9.6 mg/dL (8.4-10.2); Carbon Dioxide 24 mmol/L (22-29); Chloride 106 mmol/L (96-108); Estimated Glomerular Filt Rate > 60; Glucose Random 173 mg/dL (60-115); Sodium 138 mmol/L (135-145)
== END 2023-08-19 07:30 | disposition home or self-care (01) ==
LOC: HO.10HDL 07:29
PROVIDERS: Visit Provider Internal Medicine
DX: R10.32 Left lower quadrant pain (principal); R73.03 Prediabetes
CPT/HCPCS: 36415; 80048; 83036; 85025; 86140

== ENCOUNTER 2023-10-27 07:41 | Outpatient (REF) | payer OTHER, SELFPAY ==
[2023-10-27 11:00] LABS: Estimated Average Glucose 120 mg/dL; Hemoglobin A1C 149.4794 umol/L; Hemoglobin A1c % 5.8 % (<6.0)
[2023-10-27 11:10] LABS: Alanine Aminotransferase 13 U/L (0-31); Albumin Level 4.3 g/dL (3.5-5.0); Alkaline Phosphatase 52 U/L (39-117); Anion Gap 13 (12-20); Aspartate Amino Transferase 17 U/L (5-31); Bilirubin Total 1.4 mg/dL (0.0-1.0); Blood Urea Nitrogen 13 mg/dL (9-16); Calcium 9.7 mg/dL (8.4-10.2); Carbon Dioxide 24 mmol/L (22-29); Chloride 107 mmol/L (96-108); Cholesterol 169 mg/dL (<200); Estimated Glomerular Filt Rate > 60; Glucose Fasting 137 mg/dL (60-99); HDL Cholesterol 53 mg/dL (>40); LDL Cholesterol Calculated 100 mg/dL (<100); Sodium 140 mmol/L (135-145); Total Protein 7.3 g/dL (6.5-8.0); Triglycerides 82 mg/dL (<150)
[2023-10-27 11:22] LABS: Microalbum/Creatinine Ratio Ur 6.9 ug/mg cr (<30)
[2023-10-27 11:28] LABS: Free T4 (Free Thyroxine) 1.07 ng/dL (0.71-1.85); Thyroid Stimulating Hormone 1.08 uIU/mL (0.32-4.0)
== END 2023-10-27 07:42 | disposition home or self-care (01) ==
LOC: HO.10HDL 07:41
PROVIDERS: Visit Provider Internal Medicine
DX: R73.03 Prediabetes (principal); E03.9 Hypothyroidism, unspecified
CPT/HCPCS: 36415; 80053; 80061; 82043; 82570; 83036; 84439; 84443

== ENCOUNTER 2023-11-24 07:01 | Day surgery (SDC) | payer OTHER, SELFPAY ==
[2023-11-20 13:38] VITALS: BMI 27.8
--- NOTE | 2023-11-23 09:36 | P.CONAN_ITS ---
Documented by User: Chelsie Chan NP 11/23/23 09:36 HPI - Anesthesia Eval Consult details Narrative: 58yo F for Colonoscopy [facility] Active Problems Active Problems: All Active Problems (Updated 11/20/23 @ 13:37 by Haley William RN) Abnormal CT scan, gastrointestinal tract (Acute) Past Medical History Medical History (Updated 11/24/23 @ 07:10 by Allison Wilson, MAGGI) Diverticulitis Prediabetes Ovarian cyst Thyroid disease Abnormal CT scan, gastrointestinal tract Uterine polyp Surgical History Surgical History (Updated 11/24/23 @ 07:11 by Allison Wilson RN) History of hysteroscopy Hx of cholecystectomy Hx of section H/O colonoscopy Social History Social History (System 10/14/22 @ 08:40 by Kayli Torres) Alcohol intake: current Alcohol intake frequency: a few times a month Patient Tobacco Use Status: Never used Tobacco Use of substances other than those prescribed or required for medical reasons: No Are you DNR?: No Advance Directives: No Advance Directives Information Provided: Yes Meds Allergies Allergy/AdvReac Type Severity Reaction Status Date / Time No Known Allergies Allergy Verified 11/24/23 07:12 Home Medications Medication Instructions Recorded Confirmed Last Taken Type levothyroxine 100 mcg tablet 100 mcg PO DAILY 10/30/21 11/20/23 Unknown History Exam Height,Weight and Vital Signs: Height 5 ft 2 in Weight 68.946 kg Pertinent Lab Results Pertinent Lab Results: Laboratory Tests 08/19/23 10/27/23 07:35 07:48 WBC 7.1 Hgb 13.4 Hct 40.5 Plt Count 443 H Sodium 140 Potassium 4.0 Chloride 107 Carbon Dioxide 24 BUN 13 Creatinine 0.76 Assessment and Plan Assessment Anesthesia Assessment: Chart Reviewed Documented by User: Wilfredo Hall MD 11/24/23 07:57 [facility] Past Medical History Medical History (Updated 11/24/23 @ 07:10 by Allison Wilson RN) Diverticulitis Prediabetes Ovarian cyst Thyroid disease Abnormal CT scan, gastrointestinal tract Uterine polyp Family History Family history of problems with anesthesia: No Surgical History Surgical History (Updated 11/24/23 @ 07:11 by Allison Wilson RN) History of hysteroscopy Hx of cholecystectomy Hx of section H/O colonoscopy History of Problems with Anesthesia: No Social History Social History (System 10/14/22 @ 08:40 by Kayli Torres) Alcohol intake: current Alcohol intake frequency: a few times a month Patient Tobacco Use Status: Never used Tobacco Use of substances other than those prescribed or required for medical reasons: No Are you DNR?: No Advance Directives: No Advance Directives Information Provided: Yes Meds Allergies Allergy/AdvReac Type Severity Reaction Status Date / Time No Known Allergies Allergy Verified 11/24/23 07:12 Home Medications Medication Instructions Recorded Confirmed Last Taken Type levothyroxine 100 mcg tablet 100 mcg PO DAILY 10/30/21 11/20/23 Unknown History Exam Airway Mallampati Class: II TM Dist: >3cm Neck ROM: Full Loose/Missing/Broken Teeth: No Heart: ok Lungs: ok Assessment and Plan Assessment Anesthesia Assessment: Anesthesia Plan Discussed Final Anesthetic Review Family History of Problems with Anesthesia: No History of Problems with Anesthesia: No NPO: Yes ASA Class: II Final Preanesthetic Review: No Changes in Pt Med Stat, Meds/Allgs Chart Reviewed, Consent Obtained/Reviewed and Anes Risks/Benef Reviewed Patient Risk: Low Procedure Risk: Low Anesthetic Plan Anesthetic Plan: MAC: and Agree w/ Assess. and Plan Disposition: Standard PACU
[2023-11-24 07:12] VITALS: BMI 27.7
[2023-11-24 07:18] VITALS: BP 137/72; PULSE 67; RESP 15; TEMP 36.6; O2SAT 97
[2023-11-24] MEDS: Lactated Ringers 1,000 ML 100 ML IVCONT (07:48)
--- NOTE | 2023-11-24 08:18 | P.HPSUR_ITS ---
Pre-Procedural Eval Section A Date of Service: 11/24/23 Section B Chief Complaint: Diverticulitis of intestine, part unspecified, wit Details of Present Illness: see H&P no changes Relevant Family History (Specify if Yes): No Relevant Social History: None Present Medications: see Short Stay Collaborative assessment Medical History: No relevant PMH History of Previous Operations: No relevant previous surgery Allergies: Allergies Allergy/AdvReac Type Severity Reaction Status Date / Time No Known Allergies Allergy Verified 11/24/23 07:12 Review of Systems Sugical H&P ROS: Negative: Constitution, Cardiovascular, Respiratory, Neurol ogical, Psychiatric, Hem-Onc, Allergic/Immunologic, Gastrointestinal, Genitourinary, Musculoskeletal, Integumentary, Endocrine and Eyes/Ears/Nose/Throat Exam Surgical H&P Exam: Normal: HEENT, Normal: Heart, Normal: Lungs, Normal: Extremities, Normal: Abdomen, Normal: Skin and Normal: Neurological Plan Diagnosis/Plan: Unchanged I have reviewed the history and physical and performed a pertinent physical examination on my patient. No changes have occurred unless specified. Time Spent With Patient Time: Total time managing care of this patient today ____ minutes.
[2023-11-24 08:53] VITALS: BP 107/59; PULSE 76; RESP 16; TEMP 36.2; O2SAT 97
--- NOTE | 2023-11-24 09:07 | OP_ITS ---
DATE OF SERVICE: 11/24/2023 SURGEON: Juanito Amaro MD INDICATIONS: Diverticulitis. PREOPERATIVE DIAGNOSIS: POSTOPERATIVE DIAGNOSIS: PROCEDURE PERFORMED: Colonoscopy to the terminal ileum with biopsy. ESTIMATED BLOOD LOSS: COMPLICATIONS: ANESTHESIA: Monitored anesthesia care. ASSISTANTS: SPECIMENS: DESCRIPTION OF PROCEDURE: A history and physical were performed. The risks and benefits of the procedure were explained to the patient, and informed consent was obtained. The patient was placed in the left lateral decubitus position. A digital rectal exam was performed and was found to be normal. The Olympus pediatric video colonoscope was introduced into the rectum and advanced to the cecum. The cecum was identified by transillumination, palpation, and identification of ileocecal valve examination. Examination was performed, and the scope was removed. She tolerated the procedure well and was taken to recovery in stable condition. FINDINGS: The terminal ileum was examined and appeared normal. The visualized colonic mucosa was within normal limits without evidence of masses or ulcers. A single polyp measuring less than 5 mm was removed with biopsy forceps at 15 cm. There was mild sigmoid diverticulosis. There were few scattered diverticula in the right colon. There was no evidence of diverticulitis. Retroflexed examination showed some internal hemorrhoids. IMPRESSION: Colon polyp. RECOMMENDATION: Follow up biopsy results. MD VLAD Adams/ROSITAL / [id number]
[2023-11-24 09:08] VITALS: BP 143/81; PULSE 73; RESP 16; TEMP 36.2; O2SAT 98
== END 2023-11-24 09:35 | disposition home or self-care (01) ==
PROVIDERS: PCP Internal Medicine; Visit Provider Internal Medicine Gastroenterology
PROC: 0DJD8ZZ Inspection of Lower Intestinal Tract, Via Natural or Artificial Opening Endoscopic (ICD-10-PCS; CPT 45378; principal; 2023-11-24 08:20)
DX: K57.30 Diverticulosis of large intestine without perforation or abscess without bleeding (principal); Z83.79 Family history of other diseases of the digestive system; K63.5 Polyp of colon; K64.8 Other hemorrhoids; K76.0 Fatty (change of) liver, not elsewhere classified; Z80.0 Family history of malignant neoplasm of digestive organs; Z80.1 Family history of malignant neoplasm of trachea, bronchus and lung; Z80.51 Family history of malignant neoplasm of kidney; R73.03 Prediabetes; R73.9 Hyperglycemia, unspecified; E03.9 Hypothyroidism, unspecified; N83.209 Unspecified ovarian cyst, unspecified side; N84.0 Polyp of corpus uteri; Z90.49 Acquired absence of other specified parts of digestive tract; Z79.899 Other long term (current) drug therapy
CPT/HCPCS: 45380; 88305; J2704

== ENCOUNTER 2023-12-21 14:26 | Outpatient (REF) | payer OTHER, SELFPAY | END 2023-12-21 14:27 | disposition home or self-care (01) | LOC: HO.MAMMO 14:26 | PROVIDERS: PCP Internal Medicine; Visit Provider Internal Medicine | DX: Z12.31 Encounter for screening mammogram for malignant neoplasm of breast (principal) | CPT/HCPCS: 77063; 77067 ==

== ENCOUNTER → 2023-12-21 14:45 | Outpatient (BNV) | payer OTHER, SELFPAY | PROVIDERS: PCP Internal Medicine; Visit Provider Radiology Diagnostic Radiology | DX: Z12.31 Encounter for screening mammogram for malignant neoplasm of breast (principal) | CPT/HCPCS: 77063; 77067 ==

== ENCOUNTER 2025-01-31 15:09 | Outpatient (REF) | payer BC, SELFPAY ==
--- OUTSIDE RECORDS SUMMARY | 2025-01-31 19:01 | XMS_ITS ---
Author Organization [facility] Address [address] [place] [address] Care Team Providers Care Spanner Operator Name Role Phone Ebenezer Street MD Primary Care Provider Juanito Del Rio Jr [phone] REASON FOR VISIT diverticulitis Medications Medication SIG (Take, Route, Frequency, Duration) Notes Start Date End Date Status Levothyroxine Sodium 100 MCG 1 tablet Or ally Once a day Active Encounters Encounter Location Date Provider Diagnosis [facility] Outpatient [address] [place] [id number] 11/24/2023 Juanito Amaro Jr Diverticulitis K57.92 and Colon polyps K63.5 Assessments Encounter Date Diagnosis (ICD Code) Assessment Notes Treatment Notes Treatment Clinical Notes Section Notes 11/24/2023 Diverticulitis (ICD-10 - K57.92) 11/24/2023 Colon polyps (ICD-10 - K63.5) Plan Of Treatment No Information Progress Notes * CLARISSE HERRERA MDOB: [birth year] (59 yo F)Acc No.[id number]:11/24/2023 COLON WITH MAC Patient:?CLARISSE HERRERA Provider:?Juanito Amaro MD :[id number]???Age:58 Y???Sex:Female D ate:11/24/2023 Address:[address] [place], [place] [phone] Pcp:Ebenezer Street MD Subjective: * Chief Complaints: * ???1. Diverticulitis. * Medical History:? * Medications:?Taking Levothyr oxine Sodium 100 MCG Tablet 1 tablet Orally Once a day Objective: * Vitals:? Assessment: * Assessment: 1.?Diverticulitis - K57.92 ( Primary)???2.?Colon polyps - K63.5??? Plan: * Treatment: * Procedure Codes:?89425 COLON OSCOPY AND BIOPSY * * The named appointment provid er may or may not be the originator of this progress note, and it is not deemed complete until electronically signed by the appointment provider. Sign off status: Pending * Provider:?Juanito Amaro MD Date:?0 11/24/2023 Generated for Vee robledo/Minor/Annaitting on:?01/31/2025 07:01 PM EDT
--- OUTSIDE RECORDS SUMMARY | 2025-01-31 19:01 | XMS_ITS | Patient Health Record ---
Author Organization [facility] Address [address] [place] [address] Care Team Providers Care Overhead Door Technician Name Role Phone Ebenezer Street MD Primary Care Provider Juanito Del Rio Jr Unavailable [phone] Allergies No Known Allergies Reason For Referral No Information Medications Medication SIG (Take, Route, Frequency, Duration) Notes Start Date End Date Status Levothyroxine Sodium 100 MCG 1 tablet Or ally Once a day Active Immunizations Vaccine Route Administration Date Status Comme nts Influenza Unknown 09/09/2023 Administered Problems Problem Type SNOMED Code ICD Code Onset Dates Problem Status W/U Status Risk Notes Problem 105212245 Colon cancer screening (Z12.11) Active confirmed Problem 158691372 Diverticulitis (K57.92) Active confirmed Problem 687576132 Gastroesophageal reflux disease without esophagitis (K21.9) Active confirmed Plan Of Treatment Future Test Test Name Order Date COLONOSCOPY 03/26/2016 COLONOSCOPY 09/21/2023 Insurance Providers Payer Name Payer Address Payer Phone Subscriber Number Group Number Insured Name Patient Relationship to Insured Coverage Start Date Coverage End Date [facility] [address] [place] [phone] [id number] CLARISSE HERRERA Self - patient is the insured Medical (General) History Medical History History ICD Code Hypothyroidism Ovarian cysts Colonoscopy 06/06/16, no polyps, ten-year followup prediabetes Uterine polyps Elevated blood sugar Surgical History Surgery Date(Month/Year) c-sections x2 cholecystectomy
--- OUTSIDE RECORDS SUMMARY | 2025-01-31 19:01 | XMS_ITS ---
Author Organization [facility] Address [address] [place] [address] Care Team Providers Care Glove Sewer Name Role Phone Ebenezer Street MD Primary Care Provider Juanito Del Rio Jr [phone] Allergies No Known Allergies REASON FOR VISIT Patient presents today for diverticulitis Medications Medication SIG (Take, Route, Frequency, Duration) Notes Start Date End Date Status Levothyroxine Sodium 100 MCG 1 tablet Or ally Once a day Active Problems Problem Type SNOMED Code ICD Code Onset Dates Problem Status W/U Status Risk Notes Problem 656627916 Diverticulitis (K57.92) Active confirmed Vital Signs Temperature 97.3 degrees Fahrenheit 09/21/20 23 Blood pressure systolic 000 mm Hg 09/21/20 23 Blood pressure diastolic 00 mm Hg 023 Height 62.5 in 09/21/2023 Weight 152 lb 4 oz lbs 09/21/2023 BMI 27.40 kg/m2 09/21/2023 Encounters Encounter Location Date Provider Diagnosis [facility] [address] [place] [phone] 09/21/2023 Juanito Amaro Jr Diverticulitis K57.92 Assessments Encounter Date Diagnosis (ICD Code) Assessment Notes Treatment Notes Treatment Clinical Notes Section Notes 09/21/2023 Diverticulitis (ICD-10 - K57.92) Diverticulitis and diverticulosis - discharge material was printed We discussed diverticulitis today and its complications. She has had 2 episodes of uncomplicated diverticulitis and we did recommend followup colonoscopy for reassessment of her colon. We also discussed surgery as an option for treating this depending on the findings at the time of colonoscopy. We encouraged a high fiber diet. She is aware risks and benefits and agrees to proceed. Plan Of Treatment Treatment Notes Assessment Notes Diverticulitis Diverticulitis and d iverticulosis - discharge material was printed Future Test Test Name Order Date COLONOSCOPY 09/21/2023 Next Appt Details Follow Up: prn, Reason: Progress Notes * CLARISSE HERRERA OB: [birth year] (58 yo F)Acc No.[id number]:09/21/2023 Progress Notes Patient:?CLARISSE HERRERA Provider:?Juanito Amaro MD :1965???Age:58 Y???Sex:Female D ate:09/21/2023 Address:[address] [place], [place] [id number] Pcp:Ebenezer Street MD Subjective: * Chief Complaints: * ???1. Patient presents today for diverticulitis. * HPI: ???New symptom(s):? Mrs. Herrera is a pleasant 58-year-old woman seen today in consultation at the request of her primary care provider. She has a history of diverticulitis and had 2 episodes, earlier this year. The first was in April, the second in August. Both responded to oral antibiotic therapy with no complications except that she developed some hives while taking Augmentin. CT scanning was done in April which showed uncomplicated diverticulitis, diffuse hepatic steatosis, and chronic common bile duct dilation. We reviewed this today. She also has a history of a mesenteric cyst which is been evaluated in the past with CT and MRI. She was also seen in consultation by Dr. Ibarra for this in 2020. ?She has no prior history of diverticulitis before these 2 episodes. Colonoscopy in 2015 was normal with some mild sigmoid diverticulosis. She is not able to identify any precipitating or relieving factors. She does try to follow a high-fiber diet. Family history is positive for diverticular disease. * ROS:?General/Constitutional:?Change in appetite?denies.?Fatigue?denies.?ENT:?Patient denies?difficulty swallowing.?Respiratory:?Patient denies?shortness of breath.?Cardiovascular:?Patient denies?chest pain.?Gastrointestinal:?Comments?See HPI for details.?Genitourinary:?Difficulty urinating?denies.?Incontinence?denies.?Musculoskeletal:?Patient denies?muscle aches.?Skin:?Patient denies?pruritis.?Neurologic:?Patient denies?low back pain.?Psychiatric:?Patient denies?mental or physical abuse.? * Medical History:?Hypothyroid ism, Ovarian cysts, Colonoscopy 06/06/16, no polyps, ten-year followup, Prediabetes, Uterine polyps, Elevated blood sugar. * Surgical History:?c-sections x2 , cholecystectomy . * Family History:?Father: dece ased 77 yrs, cancer of unknown primary / one area in bowels.?Mother: 75 yrs, kidney cancer/lung cancer.? father with cancer of unknown origin. one area in the bowels. * Social History:?Tobacco Use:?Tobacco Use/Smoking?Are you a: nonsmoker.?Drugs/Alcohol:?Alcohol Screen?Points: 1, Interpretation: Negative.?Miscellaneous:?Marital status: . Occupation: pre k aid. * Medications:?Taking Levothyr oxine Sodium 100 MCG Tablet 1 tablet Orally Once a day, Discontinued Colyte with Flavor Packs 240 GM Solution Reconstituted As directed Orally Over the specified time., Medication List reviewed and reconciled with the patient * Allergies:?N.K.D.A. Objective: * Vitals:?Wt: 152 lb 4 oz, Ht: 62.5 in, BMI:27.40 Index, BP: 000/00 mm Hg, Temp: 97.3. * Examination: ???General Examination: ?GENERAL APPEARANCE:?in no acute distress.?HEAD:?normocephalic.?EYES:?sclera non-icteric.?ORAL CAVITY:?mucosa moist.?NECK/THYROID:?no lymphadenopathy.?SKIN:?anicteric.?HEART:?S1, S2 normal, no murmurs.?LUNGS:?clear to auscultation bilaterally.?CHEST:?normal shape and expansion.?ABDOMEN:?soft, nontender, nondistended, bowel sounds present, no organomegaly .?EXTREMITIES:?no clubbing, cyanosis, or edema.?PSYCH:?cognitive function intact.? Assessment: * Assessment: 1.?Diverticulitis - K57.92 ( Primary)? We discussed diverticulitis today and its complications. She has had 2 episodes of uncomplicated diverticulitis and we did recommend followup colonoscopy for reassessment of her colon. We also discussed surgery as an option for treating this depending on the findings at the time of colonoscopy. We encouraged a high fiber diet. She is aware risks and benefits and agrees to proceed. Plan: * Treatment: Notes: Diverticulitis and diverticulosis - discharge material was printed.?? * Procedure Codes:?3017F COLOR ECTAL CA SCREEN DOC REV, G9903 Pt scrn tbco id as non user, G9744 PATIENT NOT ELIG D/T ACTIVE DX HTN * Preventive Medicine:? ??Counseling:?Care goal follow-up plan:?Above Normal BMI Follow-up?Giving encouragement to exercise,?BMI management provided?Yes.? * Follow Up:?prn * * Sign off status: Completed true * Provider:?Juanito Amaro MD Date:?11/21/2022 Generated for Vee robledo/Minor/eTransmitting on:?01/31/2025 07:00 PM EDT History and Physical Notes * HPI (History of Present Illness) Category Sub-Category Detail Notes Category Not es New symptom(s) Mrs. Herrera is a pleasant 58-year-old woman seen today in consultation at the request of her primary care provider. She has a history of diverticulitis and had 2 episodes, earlier this year. The first was in April, the second in August. Both responded to oral antibiotic therapy with no complications except that she developed some hives while taking Augmentin. CT scanning was done in April which showed uncomplicated diverticulitis, diffuse hepatic steatosis, and chronic common bile duct dilation. We reviewed this today. She also has a history of a mesenteric cyst which is been evaluated in the past with CT and MRI. She was also seen in consultation by Dr. Ibarra for this in 2020. She has no prior history of diverticulitis before these 2 episodes. Colonoscopy in 2015 was normal with some mild sigmoid diverticulosis. She is not able to identify any precipitating or relieving factors. She does try to follow a high-fiber diet. Family history is positive for diverticular disease. Examination Category Sub-Category Detail Notes Category Not es General Examination GENERAL APPEARANCE: in no acute di stress HEAD: normocephalic EYES: sclera non-icteric NECK/THYROID: no lymphadenopathy HEART: S1, S2 normal, no mu rmurs CHEST: normal shape and exp ansion LUNGS: clear to auscultatio n bilaterally ABDOMEN: soft, nontender, non distended, bowel sounds present, no organomegaly SKIN: anicteric EXTREMITIES: no clubbing, cyanosi s, or edema PSYCH: cognitive function i ntact ORAL CAVITY: mucosa moist
--- OUTSIDE RECORDS SUMMARY | 2025-01-31 19:01 | XMS_ITS ---
Author Organization [facility] Address [address] [place] [address] Care Team Providers Care Follow Up Specialist Name Role Phone Ebenezer Street MD Primary Care Provider Juanito Del Rio Jr REASON FOR VISIT pathology Encounters Encounter Location Date Provider Diagnosis [facility] [address] [place] [address] 12/03/2023 Juanito Amaro Jr Plan Of Treatment No Information Progress Notes * CLARISSE HERRERA MDOB: [birth year] (58 yo F)Acc No.[id number]:12/03/2023 Patient:?CLARISSE HERRERA :1965???Age:58 Y???Sex:Female Address:[address] [place] [address] * true * Date:? Generated for Printi meena/Minor/eTransmitting on:?01/31/2025 07:01 PM EDT
== END 2025-01-31 15:10 | disposition home or self-care (01) ==
LOC: HO.MAMMO 15:09
PROVIDERS: PCP Internal Medicine; Visit Provider Internal Medicine
DX: Z12.31 Encounter for screening mammogram for malignant neoplasm of breast (principal)
CPT/HCPCS: 77063; 77067

== ENCOUNTER → 2025-01-31 15:30 | Outpatient (BNV) | payer BC, SELFPAY | PROVIDERS: PCP Internal Medicine; Visit Provider Internal Medicine | DX: Z12.31 Encounter for screening mammogram for malignant neoplasm of breast (principal) | CPT/HCPCS: 77063; 77067 ==

== ENCOUNTER 2025-05-25 09:02 | Outpatient (REF) | payer BC, SELFPAY ==
[2025-05-25 10:07] LABS: MANUAL DIFF FLAG NO
[2025-05-25 10:39] LABS: Hematocrit 40.4 % (37.0-47.0); Hemoglobin 13.9 g/dl (12.0-16.0); Imm Gran Abs Auto 0.03 X10*3/uL (0.00-0.03); Imm Gran Pct Auto 0.4 % (0.0-0.4); Lymphocytes Absolute Auto 2.2 X10*3/uL (1.2-4.9); Mean Corpuscular HGB Conc 34.4 g/dl (31.0-35.0); Mean Corpuscular Hemoglobin 30.1 pg (27.0-33.0); Mean Corpuscular Volume 87.4 fL (80.0-98.0); NRBC Abs Auto 0.000 X10*3/uL (0.0-0.012); NRBC Pct Auto 0.0 /100WBC (0.0-0.2); Platelet Count 463 X10*3/uL (160-400); Red Blood Count 4.62 X10*6/uL (4.20-5.50); White Blood Count 7.3 X10*3/uL (4.8-10.8)
[2025-05-25 10:52] LABS: Hemoglobin A1C 156.9793 umol/L; Total Hemoglobin (HGBA1C) 3578.8889 umol/L
[2025-05-25 11:39] LABS: Alanine Aminotransferase 27 U/L (0-31); Albumin Level 4.6 g/dL (3.5-5.0); Alkaline Phosphatase 55 U/L (39-117); Anion Gap 12 (12-20); Aspartate Amino Transferase 24 U/L (5-31); Blood Urea Nitrogen 10 mg/dL (9-16); Calcium 9.7 mg/dL (8.4-10.2); Carbon Dioxide 26 mmol/L (22-29); Chloride 107 mmol/L (96-108); Estimated Glomerular Filt Rate > 60; Potassium 4.1 mmol/L (3.3-5.1); Sodium 141 mmol/L (135-145); Total Protein 7.3 g/dL (6.5-8.0)
== END 2025-05-25 09:03 | disposition home or self-care (01) ==
LOC: HO.LAB 09:02
PROVIDERS: PCP Internal Medicine; Visit Provider Internal Medicine
DX: R73.03 Prediabetes (principal); E03.9 Hypothyroidism, unspecified; K57.92 Diverticulitis of intestine, part unspecified, without perforation or abscess without bleeding; R93.3 Abnormal findings on diagnostic imaging of other parts of digestive tract; Z13.228 Encounter for screening for other metabolic disorders; Z13.31 Encounter for screening for depression; Z13.39 Encounter for screening examination for other mental health and behavioral disorders
CPT/HCPCS: 36415; 80053; 83036; 83721; 84443; 85025; 85652; 96127

== ENCOUNTER 2025-05-25 09:02 | Outpatient (AMB) | payer BC, SELFPAY ==
--- NOTE | 2025-05-25 09:07 | MHC.PC.OV ---
Vital Signs 05/25/25 09:10 Height 5 ft 2 in Weight 157 lb BMI 28.7 BP 138/72 Blood Pressure Location Lt brachial Position Sitting Respiration 16 Pulse 74 Pulse Source Pulse Oximeter Temp 97.6 F Temp Source Temporal Artery Scan Pulse Oximetry (%) 98 Oxygen Delivery Method Room Air Intake Visit Reasons: Routine Metallurgist Process Required: No Allergies No Known Allergies Allergy (Verified 05/25/25 09:07) Tobacco use date assessed: 05/25/25 HPI HPI Comments History of Present Illness Details The patient is a 59 year old female with a past medical history of hypothyroid, diverticulosis/diverticulitis, presenting for follow up Hypothyroid-stable on meds. Overdue TSH Uterine polyps-followed by gynecology Thinks she has a mild diverticulitis flare since Thursday. Increase BMs some abdominal cramping. Did not tolerate cipro flagyl in past. Would like to try the augmentin again. Had a questionable allergy in the past-blood shot eye Mammo, colonoscopy UTD ROS see HPI PHYSICAL EXAM: GENERAL: Alert and oriented x 3. NAD EYES: EOMI. Anicteric. HENT: Moist mucous membranes. No scleral icterus. No cervical lymphadenopathy. LUNGS: Clear to auscultation bilaterally. CARDIOVASCULAR: Regular rate and rhythm. No murmur. No JVD. ABDOMEN: Soft, non-tender +bs EXTREMITIES: No edema. Non-tender. SKIN: No rashes or lesions. Warm. NEUROLOGIC: No focal neurological deficits. CN II-XII grossly intact PSYCHIATRIC: Cooperative. Appropriate mood and affect [facility] Medical History Diverticulitis Prediabetes Ovarian cyst Thyroid disease Abnormal CT scan, gastrointestinal tract Uterine polyp Surgical History History of hysteroscopy Hx of cholecystectomy Hx of section H/O colonoscopy (~11/24/23) Social History Alcohol intake: current Alcohol intake frequency: a few times a month Patient Tobacco Use Status: Never used Tobacco e-Cigarette/Vaping Use: Never Used Questionnaire PHQ-9 Over the last 2 weeks, how often have you been bothered by any of the following problems? 1. Little interest or pleasure in doing things: not at all 2. Feeling down, depressed, or hopeless: not at all 3. Trouble falling or staying asleep, or sleeping too much: several days 4. Feeling tired or having little energy: not at all 5. Poor appetite or overeating: not at all 6. Feeling bad about yourself - or that you are a failure or have let yourself or your family down: not at all 7. Trouble concentrating on things, such as reading the newspaper or watching television: not at all 8. Moving or speaking so slowly that other people could have noticed. Or the opposite - being so fidgety or restless that you have been moving around a lot more than usual: not at all 9. Thoughts that you would be better off or of hurting yourself in some way: not at all Total score: 1 Depression Screening Interpretation: Negative Depression Screening Done: Yes 42804 - PHQ-9 Billing: Yes Source: Developed by Drs. Gabo Munoz, Lillian Gutierrez, Emile Bob and colleagues, with an educational sivakumar from [employer]. Thrive Questionnaire Date Thrive assessed: 05/25/25 I am a: Patient What is your living situation today?: I have a steady place to live Within the past 12 months, did the food you bought not last and you didn't have the money to get more?: Never true Within the past 12 months, did you worry whether your food would run out before you got money to buy more?: Never true Do you have trouble paying for medicines?: No Do you have trouble getting transportation to medical appointments?: No Do you have trouble paying your heating and electricity bill?: No Do you have trouble taking care of your child, family member or friend?: No Do you have trouble with day-to-day activities such as bathing, preparing meals, shopping, managing finances, etc.?: No Are you currently unemployed and looking for a job?: No Are you interested in more education?: No THRIVE Score: 0 AUDIT C Alcohol Use Questionnaire (AUDIT-C) 1. How often do you have a drink containing alcohol?: Monthly or less 2. How many drinks containing alcohol do you have on a typical day when you are drinking?: 1 or 2 Total Score: 1 RYDER-7 AMB Questionnaire RYDER-7 Date RYDER - 7 assessed: 05/25/25 Feeling nervous, anxious, or on edge: 1 = Several days Not being able to stop or control worryin = Several days Worrying too much about different things: 1 = Several days Trouble relaxin = Several days Being so restless that it is hard to sit still: 0 = Not at all Becoming easily annoyed or irritable: 0 = Not at all Feeling afraid as if something awful might happen: 0 = Not at all Total RYDER-7 score (0-4 normal; 5-9 mild; 10-14 moderate; 15-21 severe): 4 Source: Developed by Drs. Gabo Munoz, Lillian Gutierrez, Emile Bob and colleagues, with an educational sivakumar from [employer]. Physical exam (Primary Care) Vital Signs: Last Vital Signs Temp 97.6 F 05/25/25 09:10 Pulse 74 05/25/25 09:10 Resp 16 05/25/25 09:10 BP 138/72 05/25/25 09:10 Pulse Ox 98 05/25/25 09:10 Oxygen Delivery Method Room Air 05/25/25 09:10 BMI result Body Mass Index 28.7 Tobacco/Smoking Status: Tobacco use Status Tobacco use date assessed 05/25/25 05/25/25 09:12 Patient Tobacco Use Status Never used Tobacco 05/25/25 09:12 e-Cigarette/Vaping Use Never Used 05/25/25 09:12 PHQ-9: PHQ-9 Score PHQ-9: Total score 1 05/25/25 09:39 Depression Screening Interpretation: Negative Coding Level of Care Code Est Pt Level 4 (18053) Complex EM visit Add On G2211 Diagnoses Prediabetes R73.03 Thyroid disease E07.9 Diverticulitis K57.92 Additional Codes PHQ-9 - 73923 - PHQ-9 Billing: Yes ([id number]) Assessment & Plan Assessment & Plan (1) Prediabetes: Code(s): R73.03 - Prediabetes Category: Medical (2) Thyroid disease: Code(s): E07.9 - Disorder of thyroid, unspecified Category: Medical (3) Diverticulitis: Code(s): K57.92 - Diverticulitis of intestine, part unspecified, without perforation or abscess without bleeding Category: Medical Plan 59 year old to establish care Past medical surgical social reviewed Hypothyroid-check tsh Prediabetes-monitor sugar/carb. check a1c Divertulitis-start augmentin Orders: Orders TSH reflex Free T4 Today E07.9 - Disorder of thyroid, unspecified, K57.92 - Diverticulitis of intestine, part unspecified, without perforation or abscess without bleeding, R73.03 - Prediabetes, R93.3 - Abnormal findings on diagnostic imaging of other parts of digestive tract, Z13.228 - Encounter for screening for other metabolic disorders LDL Cholesterol Direct Today E07.9 - Disorder of thyroid, unspecified, K57.92 - Diverticulitis of intestine, part unspecified, without perforation or abscess without bleeding, R73.03 - Prediabetes, R93.3 - Abnormal findings on diagnostic imaging of other parts of digestive tract, Z13.228 - Encounter for screening for other metabolic disorders Complete Blood Count Auto Diff Today E07.9 - Disorder of thyroid, unspecified, K57.92 - Diverticulitis of intestine, part unspecified, without perforation or abscess without bleeding, R73.03 - Prediabetes, Z13.228 - Encounter for screening for other metabolic disorders Comprehensive Met. Panel Today E07.9 - Disorder of thyroid, unspecified, K57.92 - Diverticulitis of intestine, part unspecified, without perforation or abscess without bleeding, R73.03 - Prediabetes, R93.3 - Abnormal findings on diagnostic imaging of other parts of digestive tract, Z13.228 - Encounter for screening for other metabolic disorders Erythrocyte Sedimentation Rate Today E07.9 - Disorder of thyroid, unspecified, K57.92 - Diverticulitis of intestine, part unspecified, without perforation or abscess without bleeding, R73.03 - Prediabetes, R93.3 - Abnormal findings on diagnostic imaging of other parts of digestive tract, Z13.228 - Encounter for screening for other metabolic disorders Hemoglobin A1c Today E07.9 - Disorder of thyroid, unspecified, K57.92 - Diverticulitis of intestine, part unspecified, without perforation or abscess without bleeding, R73.03 - Prediabetes, R93.3 - Abnormal findings on diagnostic imaging of other parts of digestive tract, Z13.228 - Encounter for screening for other metabolic disorders Medications: New levothyroxine 100 mcg PO DAILY 90 tabs 3RF amoxicillin-pot clavulanate 875-125 mg 1 tab PO BID 20 tabs 1RF lorazepam 0.5 mg PO BID PRN 30 tabs 1RF anxiety
[2025-05-25 09:10] VITALS: BP 138/72; PULSE 74; RESP 16; TEMP 36.4; O2SAT 98; BMI 28.7
--- OUTSIDE RECORDS SUMMARY | 2025-05-25 09:24 | XMS_ITS | Patient Health Record ---
Author Organization [facility] Address [address] [place] [address] Care Team Providers Care Weight Tester Name Role Phone Yenifer (RETIRED) Ebenezer ORTEGA Primary Care Provide r Juanito Webster Jr Unavailable Allergies No Known Allergies Reason For Referral No Information Medications Medication SIG (Take, Route, Frequency, Duration) Notes Start Date End Date Status Levothyroxine Sodium 100 MCG 1 tablet Or ally Once a day Active Immunizations Vaccine Route Administration Date Status Comme nts Influenza Unknown 09/09/2023 Administered Problems Problem Type SNOMED Code ICD Code Onset Dates Problem Status W/U Status Risk Notes Problem 846237578 Colon cancer screening (Z12.11) Active confirmed Problem 142288469 Diverticulitis (K57.92) Active confirmed Problem 989720288 Gastroesophageal reflux disease without esophagitis (K21.9) Active confirmed Plan Of Treatment Future Test Test Name Order Date COLONOSCOPY 03/26/2016 COLONOSCOPY 09/21/2023 Insurance Providers Payer Name Payer Address Payer Phone Subscriber Number Group Number Insured Name Patient Relationship to Insured Coverage Start Date Coverage End Date [facility] [address] [place] [phone] [id number] CLARISSE HERRERA Self - patient is the insured Medical (General) History Medical History History ICD Code Hypothyroidism Ovarian cysts Colonoscopy 06/06/16, no polyps, ten-year followup prediabetes Uterine polyps Elevated blood sugar Surgical History Surgery Date(Month/Year) c-sections x2 cholecystectomy
== END 2025-05-25 10:28 | disposition home or self-care (01) ==
LOC: HO.HMCHD 09:02
PROVIDERS: PCP Internal Medicine; Visit Provider Internal Medicine
DX: R73.03 Prediabetes (principal); E07.9 Disorder of thyroid, unspecified; K57.92 Diverticulitis of intestine, part unspecified, without perforation or abscess without bleeding